=== PATIENT | female | born 1935 | race Caucasian/White ===

== ENCOUNTER 2016-11-19 12:56 | Emergency (ER) | payer OTHER ==
[~2016-11-19] VITALS: Ht 165.1 cm; Wt 84.6 kg
[2016-11-19] VITALS (11 sets, daily range): BP systolic 113–140; BP diastolic 52–74; PULSE 59–71; TEMP 36.7–37; O2SAT 95–98; Ht 165.1 cm; Wt 84.6 kg
[~2016-11-19 12:56] MED LIST: DONE10TA12 PO; FURO-85 PO; LOSA50TA6 PO; NATURAL SUPPLEMENT PO; TYLOTC500 PO; WARF4TAB43 PO; WARF4TAB44 PO
[2016-11-19] MEDS ORDERED: SODIUM CHLORIDE 0.9% 1000ML 1,000 ML IV STA (13:20)
--- NOTE | 2016-11-19 13:49 | EMERGENCY ROOM VISIT NOTE ---
History First contact with patient: 13:08 Chief Complaint: ABNORMAL LABS Stated Complaint: BLOOD TRANFUSION - SENT BY History of Present Illness The patient is a 80 year old female who presents to the Emergency Room with complaints of anemia. The patient has had persistent anemia. She has been following with Dr. Rg. She was given Procrit for approximately 3 months. Her hemoglobin was almost back to 10. Her hemoglobin began to trend downward again. She then had bone marrow biopsy by hematology. She is found to have a myeloproliferative disorder. She is now following with her family doctor. The recommended treatment is transfusion of packed red blood cells with anemia. The patient had blood work done this morning and her hemoglobin was found to be 6.6. She was sent to the emergency department for transfusion. She does take Coumadin. She has a history of CVA at age 51 and a history of pulmonary embolus. The patient's last INR was October 20 and was 2.8. The patient denies any pain. She denies any chest pain or trouble breathing. She denies any shortness of breath or dizziness. She denies any abdominal pain, nausea or vomiting. She denies any melena, hematemesis, hematochezia. She denies any dysuria, urgency, frequency or hematuria. Review of Systems A 10 system review of systems was completed with positives and pertinent negatives listed in the HPI. Past Medical/Surgical History Medical Problems: (1) CVA (cerebral vascular accident) (2) Deep venous thrombosis (3) Hysterectomy (4) Pulmonary embolism Social History Smoking Status: Never Smoker Alcohol Use: occasionally Marital Status: Housing Status: lives alone Occupation Status: unemployed Current/Historical Medications Scheduled Acetaminophen (Tylenol), 500 MG PO QAM Cholecalciferol (Vitamin D3), 1 TAB PO QAM Donepezil Hydrochloride (Aricept), 10 MG PO QAM Doxycycline (Monohydrate) (Doxycycline), 100 MG PO BID Furosemide (Lasix), 20 MG PO 3XWK Losartan Potassium (Cozaar), 25 MG PO QAM Memantine (Namenda), 10 MG PO BID Multiple Vitamins W/ Minerals (One Daily 50 Plus), 1 TAB PO QAM Sertraline (Zoloft), 50 MG PO HS Warfarin Sodium (Warfarin Sodium), 1 MG PO UD Warfarin Sodium (Warfarin Sodium), 2 MG PO QAM [Natural Supplement], 1 PACK PO HS Scheduled PRN Azelastine Hcl (Astelin Nasal [place]), 2 SPRAYS NA BID PRN for Nasal Congestion Allergies Coded Allergies: SIA Inhibitors (Unverified Allergy, Intermediate, COUGH, 11/19/16) Uncoded Allergies: N (Allergy, Unknown, 06/29/02) NO (Allergy, Unknown, 06/29/02) NO0 (Allergy, Unknown, 06/29/02) Physical Exam Vital Signs Date Time Temp Pulse Resp B/P (MAP) Pulse Ox O2 Delivery O2 Flow Rate FiO2 11/19/16 21:20 62 117/64 98 11/19/16 20:30 62 20 123/64 95 11/19/16 19:30 64 18 137/62 95 11/19/16 19:00 67 18 113/52 97 11/19/16 18:45 64 19 121/56 96 11/19/16 18:45 36.8 11/19/16 18:31 36.8 59 20 137/74 97 11/19/16 18:19 36.7 65 22 140/64 97 11/19/16 17:46 119/61 11/19/16 17:45 37.0 63 20 119/61 96 11/19/16 17:41 65 20 11/19/16 17:31 118/61 11/19/16 17:26 64 20 11/19/16 17:16 112/55 11/19/16 17:15 68 11/19/16 17:11 68 19 11/19/16 17:01 110/47 11/19/16 16:56 66 11/19/16 16:46 114/81 11/19/16 16:41 70 18 11/19/16 16:33 36.9 71 16 123/59 97 11/19/16 16:33 123/59 11/19/16 16:31 122/55 11/19/16 16:26 67 20 95 11/19/16 16:16 107/50 11/19/16 16:11 71 18 94 11/19/16 16:01 111/56 11/19/16 15:56 63 20 95 11/19/16 15:52 114/59 11/19/16 15:52 37.0 66 20 114/59 95 11/19/16 15:46 90/66 7/6/17 15:41 62 19 96 11/19/16 15:37 36.8 68 20 115/59 95 11/19/16 15:33 115/59 11/19/16 15:26 62 22 96 11/19/16 15:11 71 19 95 11/19/16 15:02 112/59 11/19/16 15:02 63 20 112/59 94 Room Air 11/19/16 14:56 65 19 96 11/19/16 14:41 68 19 95 11/19/16 14:26 69 24 11/19/16 14:11 88 26 11/19/16 13:56 66 22 11/19/16 13:41 72 25 11/19/16 13:26 79 20 11/19/16 13:15 68 11/19/16 13:03 36.7 74 20 123/58 98 Room Air Physical Exam VITALS: Vitals are noted on the nurse's note and reviewed by myself. Vital signs stable. The patient is afebrile. She is not tachycardic, tachypneic, hypoxic or hypotensive. GENERAL: This is a 80-year-old female, in no acute distress, nondiaphoretic, well-developed well-nourished. SKIN: The skin was pale without rashes, erythema, edema, or bruising. There is no tenting of the skin. Capillary reflex less than 2 seconds. HEAD: Normocephalic atraumatic. EARS: The external ears are normal in appearance. EYES: Pupils equal round and reactive to light and accommodation. Conjunctivae without injection, sclerae without icterus. Extraocular movements intact. NOSE: Patent, turbinates without inflammation or discharge. MOUTH: Mucous membranes moist. Tonsils are not enlarged. Pharynx without erythema or exudate. Uvula midline. Airway patent. Tongue does not deviate. NECK: Supple without nuchal rigidity. No lymphadenopathy. No thyromegaly. Cervical spine is nontender. No JVD. HEART: Regular rate and rhythm without murmurs gallops or rubs. LUNGS: Clear to auscultation bilaterally without wheezes, rales or rhonchi. No retractions or accessory muscle use. ABDOMEN: Positive bowel sounds x 4. Soft, nontender, without masses or organomegaly. RECTAL: There is a nontender, nonthrombosed, non-bleeding external hemorrhoid. The stool is brown and guaiac negative. MUSCULOSKELETAL: No muscle atrophy, erythema, or edema noted. Full range of motion in all extremities. Strength 5/5 throughout. NEURO: Patient was alert and oriented to person place and time. No focal neurological deficits. Medical Decision & Procedures Laboratory Results 11/19/16 13:40 Red Blood Count 1.67, Mean Corpuscular Volume 116.2, Mean Corpuscular Hemoglobin 38.3, Mean Corpuscular Hemoglobin Concent 33.0, Mean Platelet Volume 10.1, Neutrophils (%) (Auto) 57.3, Lymphocytes (%) (Auto) 31.8, Monocytes (%) ( Auto) 6.1, Eosinophils (%) (Auto) 1.7, Basophils (%) (Auto) 0.3, Neutrophils # ( Auto) 3.46, Lymphocytes # (Auto) 1.92, Monocytes # (Auto) 0.37, Eosinophils # ( Auto) 0.10, Basophils # (Auto) 0.02 11/19/16 13:40 Test 11/19/16 13:40 White Blood Count 6.04 K/uL (4.8-10.8) Red Blood Count 1.67 M/uL (4.2-5.4) Hemoglobin 6.4 g/dL (12.0-16.0) Hematocrit 19.4 % (37-47) Mean Corpuscular Volume 116.2 fL (80-100) Mean Corpuscular Hemoglobin 38.3 pg (25-34) Mean Corpuscular Hemoglobin Concent 33.0 g/dl (32-36) Platelet Count 412 K/uL (130-400) Mean Platelet Volume 10.1 fL (7.4-10.4) Neutrophils (%) (Auto) 57.3 % Lymphocytes (%) (Auto) 31.8 % Monocytes (%) (Auto) 6.1 % Eosinophils (%) (Auto) 1.7 % Basophils (%) (Auto) 0.3 % Neutrophils # (Auto) 3.46 K/uL (1.4-6.5) Lymphocytes # (Auto) 1.92 K/uL (1.2-3.4) Monocytes # (Auto) 0.37 K/uL (0.11-0.59) Eosinophils # (Auto) 0.10 K/uL (0-0.5) Basophils # (Auto) 0.02 K/uL (0-0.2) RDW Standard Deviation 76.6 fL (36.4-46.3) RDW Coefficient of Variation 18.6 % (11.5-14.5) Immature Granulocyte % (Auto) 2.8 % Immature Granulocyte # (Auto) 0.17 K/uL (0.00-0.02) Macrocytosis PRESENT Tear Drop Cells OCCASIONAL Ovalocytes 1+ Prothrombin Time 32.1 SECONDS (9.0-12.0) Prothromb Time International Ratio 2.9 (0.9-1.1) Activated Partial Thromboplast Time 31.4 SECONDS (21.0-31.0) Partial Thromboplastin Ratio 1.2 Anion Gap 4.0 mmol/L (3-11) Est Creatinine Clear Calc Drug Dose 49.0 ml/min Estimated GFR () 62.1 Estimated GFR (Non- 53.5 BUN/Creatinine Ratio 30.1 (10-20) Calcium Level 9.0 mg/dl (8.5-10.1) Total Bilirubin 0.3 mg/dl (0.2-1) Aspartate Amino Transf (AST/SGOT) 17 U/L (15-37) Alanine Aminotransferase (ALT/SGPT) 19 U/L (12-78) Alkaline Phosphatase 58 U/L (45-117) Total Protein 6.1 gm/dl (6.4-8.2) Albumin 2.9 gm/dl (3.4-5.0) Globulin 3.2 gm/dl (2.5-4.0) Albumin/Globulin Ratio 0.9 (0.9-2) Medications Administered Medications (Trade) Dose Ordered Sig/[place] Route Start Time Stop Time Status Last Admin Dose Admin Sodium Chloride 1,000 ml @ 125 mls/hr Q8H STAT IV 11/19/16 13:20 11/19/16 21:19 DC 11/19/16 13:20 125 MLS/HR ED Course The patient was seen and examined. Previous visits were reviewed. The patient does not have a fever or leukocytosis. The patient is anemic with hemoglobin 6.4 and hematocrit 19.4. She does not have any significant electrolyte abnormalities. INR is 2.9. She does take Coumadin. The patient was type and crossmatched for 2 units of packed red blood cells. These were administered in the emergency department after consent was obtained by Dr. Salazar. The patient presents to the emergency department with anemia and for blood transfusion. The patient was recently diagnosed with myeloproliferative disease. She was advised that the treatment will be transfusion of packed red blood cells if she develops significant anemia. She did not have any significant chest pain, trouble breathing, lightheadedness, dizziness. I did discuss the case with the hospitalist service, Nessa HAMMOND. She felt that the patient would be safe for discharge after transfusion of the blood. She also contacted the patient's family doctor and contacted the medical treatment unit. Due to the timing, the medical treatment unit would be closed for the patient's transfusion would be done. This was discussed with the charge nurse. The patient was monitored in the emergency department during the transfusion. She was reassessed and feeling fine. She stated she was actually feeling much better. The patient was encouraged to contact the Coumadin clinic tomorrow to discuss her Coumadin. She was also advised to have her hemoglobin rechecked in approximately 3 days. She should return with any worsening symptoms. The patient was also seen and examined by who agrees with the assessment and treatment plan. Medication Reconciliation: I attest that I have personally reviewed the patient' s current medication list. Blood pressure screening: The patient was found to have normal blood pressure on screening and does not require follow-up Medical Decision The differential diagnosis includes GI bleeding, anemia, myeloproliferative disease, dehydration, among others Impression Primary Impression: Anemia Additional Impression: Myeloproliferative disease Critical Care I have personally spent greater than 35 minutes of critical care time in the direct management of this patient. This includes bedside care, interpretation of diagnostic studies, and testing, discussion with consultants, patient, and family members, and other required patient management activities. This 30 minutes is in excess of all separately billable procedures. Departure Information Dispostion Home / Self-Care Condition GOOD Referrals Joseph Bolden, D.O. (PCP) Patient Instructions My [facility], Outpatient Transfusion Information Sheet - [facility], Transfusion Blood When Need Additional Instructions Follow up with your family doctor and have the blood work rechecked per Dr. Bolden Return with any chest pain, trouble breathing, lightheadedness, dizziness or generalized worsening symptoms Problem Qualifiers
[2016-11-19] MEDS ORDERED: ASTN (13:57)
[2016-11-19] MEDS ORDERED: DOXY-300 PO (13:57)
[2016-11-19] MEDS ORDERED: SERT50TA PO (13:57)
[2016-11-19] MEDS ORDERED: MULT50TA3 PO (14:02)
[2016-11-19] MEDS ORDERED: CHOL1000 PO (14:02)
[2016-11-19] MEDS ORDERED: NMN10 PO (14:02)
--- NOTE | 2016-11-19 14:09 | EMERGENCY ROOM VISIT NOTE ---
ED Visit Note First contact with patient: 13:08 I have seen and examined this patient with Yani Camacho and generally agree with the treatment plan as discussed. Problem List Medical Problems: (1) Deep venous thrombosis Status: Resolved (2) Hysterectomy Status: Resolved (3) Pulmonary embolism Status: Resolved Current/Historical Medications Scheduled Acetaminophen (Tylenol), 500 MG PO QAM Cholecalciferol (Vitamin D3), 1 TAB PO DAILY Donepezil Hydrochloride (Aricept), 10 MG PO QAM Doxycycline (Monohydrate) (Doxycycline), 100 MG PO BID Furosemide (Lasix), 20 MG PO 3XWK Losartan Potassium (Cozaar), 25 MG PO QAM Memantine (Namenda), 10 MG PO BID Multiple Vitamins W/ Minerals (One Daily 50 Plus), 1 TAB PO QAM Sertraline (Zoloft), 50 MG PO HS Warfarin Sodium (Warfarin Sodium), 1 MG PO UD Warfarin Sodium (Warfarin Sodium), 2 MG PO QAM [Natural Supplement], 1 PACK PO HS Scheduled PRN Azelastine Hcl (Astelin Nasal [place]), 1-2 SPRAYS NA BID PRN for Nasal Congestion Allergies Coded Allergies: SIA Inhibitors (Unverified Allergy, Intermediate, COUGH, 11/19/16) Uncoded Allergies: N (Allergy, Unknown, 06/29/02) NO (Allergy, Unknown, 06/29/02) NO0 (Allergy, Unknown, 06/29/02) Vital Signs Date Time Temp Pulse Resp B/P (MAP) Pulse Ox O2 Delivery O2 Flow Rate FiO2 11/19/16 13:15 68 11/19/16 13:03 36.7 74 20 123/58 98 Room Air Laboratory Results Test 11/19/16 13:40 Medications Administered Medications (Trade) Dose Ordered Sig/[place] Route Start Time Stop Time Status Last Admin Dose Admin Sodium Chloride 1,000 ml @ 125 mls/hr Q8H STAT IV 11/19/16 13:20 11/19/16 21:19 11/19/16 13:20 125 MLS/HR Departure Information Referrals Joseph Bolden D.O. (PCP) Patient Instructions My [facility]
[2016-11-19 14:10] LABS: INR 2.9 (0.9-1.1); PARTIAL THROMBOPLASTIN RATIO 1.2; PROTHROMBIN TIME (PATIENT) 32.1 SECONDS (9.0-12.0)
[2016-11-19 14:12] LABS: HEMATOCRIT 19.4 % (37-47); MEAN CELL VOLUME 116.2 fL (80-100); MEAN CORPUSCULAR HEMOGLOBIN 38.3 pg (25-34); MEAN PLATELET VOLUME 10.1 fL (7.4-10.4); PLATELET COUNT 412 K/uL (130-400); RED BLOOD COUNT 1.67 M/uL (4.2-5.4); WHITE BLOOD COUNT 6.04 K/uL (4.8-10.8)
[2016-11-19 14:24] LABS: BUN/CREATININE RATIO 30.1 (10-20); POTASSIUM 4.2 mmol/L (3.5-5.1)
[2016-11-19 14:27] LABS: ALB/GLOB RATIO 0.9 (0.9-2); BASO % 0.3 %; BASO ABS # 0.02 K/uL (0-0.2); COMPLETE YES; EOS % 1.7 %; IG% 2.8 %; LYMPH % 31.8 %; LYMPH ABS # 1.92 K/uL (1.2-3.4); MONO % 6.1 %; NEUT % 57.3 %; OVALOCYTES 1+; TEAR DROP CELLS OCCASIONAL
== END 2016-11-19 21:10 | disposition home or self-care (01) ==
LOC: C.EDB 12:57 → C.EDC 21:10
DX: D64.9 Anemia, unspecified (principal); C94.6 Myelodysplastic disease, not elsewhere classified; Z86.73 Personal history of transient ischemic attack (TIA), and cerebral infarction without residual deficits; Z86.711 Personal history of pulmonary embolism; Z86.718 Personal history of other venous thrombosis and embolism; Z90.710 Acquired absence of both cervix and uterus; Z79.01 Long term (current) use of anticoagulants

== ENCOUNTER → 2017-07-13 | Outpatient (CLI) | payer OTHER ==
[~2017-07-13] MED LIST changes: +ASTN; +CHOL1000 PO; +DOXY-300 PO; -LOSA50TA6 PO; +MULT50TA3 PO; -NATURAL SUPPLEMENT PO; +NMN10 PO; +SERT50TA PO
[2017-07-13 12:39] LABS: HEMATOCRIT 18.6 % (37-47); HEMOGLOBIN 6.2 g/dL (12.0-16.0); MEAN CELL VOLUME 86.1 fL (80-100); MEAN CORPUSCULAR HEMOGLOBIN 28.7 pg (25-34); MEAN CORPUSCULAR HGB CONC 33.3 g/dl (32-36); MEAN PLATELET VOLUME 10.9 fL (7.4-10.4); PLATELET COUNT 222 K/uL (130-400); RED CELL DISTRIBUTION WIDTH CV 16.8 % (11.5-14.5); WHITE BLOOD COUNT 5.64 K/uL (4.8-10.8)
[2017-07-13 12:51] LABS: EOS ABS # 0.11 K/uL (0-0.5); IG# 0.02 K/uL (0.00-0.02); LYMPH % 30.3 %; LYMPH ABS # 1.71 K/uL (1.2-3.4); MONO % 8.9 %; NEUT % 58.4 %
== END | disposition home or self-care (01) ==
LOC: C.LABWYN 12:16
PROVIDERS: ATTEND Internal Medicine Hematology & Oncology
DX: D46.9 Myelodysplastic syndrome, unspecified (principal)

== ENCOUNTER → 2017-07-20 | Outpatient (CLI) | payer OTHER ==
[2017-07-20 12:36] LABS: BASO % 0.2 %; BASO ABS # 0.01 K/uL (0-0.2); EOS % 1.8 %; EOS ABS # 0.12 K/uL (0-0.5); HEMATOCRIT 21.9 % (37-47); HEMOGLOBIN 7.3 g/dL (12.0-16.0); IG# 0.01 K/uL (0.00-0.02); LYMPH % 24.2 %; LYMPH ABS # 1.58 K/uL (1.2-3.4); MEAN CORPUSCULAR HEMOGLOBIN 29.3 pg (25-34); MEAN CORPUSCULAR HGB CONC 33.3 g/dl (32-36); MEAN PLATELET VOLUME 11.5 fL (7.4-10.4); MONO % 10.6 %; MONO ABS # 0.69 K/uL (0.11-0.59); NEUT ABS # 4.13 K/uL (1.4-6.5); PLATELET COUNT 179 K/uL (130-400); RED CELL DISTRIBUTION WIDTH CV 17.2 % (11.5-14.5); RED CELL DISTRIBUTION WIDTH SD 55.9 fL (36.4-46.3); WHITE BLOOD COUNT 6.54 K/uL (4.8-10.8)
== END | disposition home or self-care (01) ==
LOC: C.LABWYN 09:19
PROVIDERS: ATTEND Internal Medicine Hematology & Oncology
DX: D46.9 Myelodysplastic syndrome, unspecified (principal)

== ENCOUNTER → 2017-07-27 | Outpatient (CLI) | payer OTHER ==
[2017-07-27 12:46] LABS: BASO % 0.2 %; BASO ABS # 0.01 K/uL (0-0.2); EOS % 2.9 %; EOS ABS # 0.17 K/uL (0-0.5); HEMOGLOBIN 8.1 g/dL (12.0-16.0); IG# 0.02 K/uL (0.00-0.02); LYMPH % 23.3 %; LYMPH ABS # 1.39 K/uL (1.2-3.4); MEAN CELL VOLUME 88.7 fL (80-100); MEAN CORPUSCULAR HEMOGLOBIN 28.7 pg (25-34); MEAN CORPUSCULAR HGB CONC 32.4 g/dl (32-36); MEAN PLATELET VOLUME 11.3 fL (7.4-10.4); MONO ABS # 0.42 K/uL (0.11-0.59); NEUT % 66.3 %; NEUT ABS # 3.95 K/uL (1.4-6.5); PLATELET COUNT 196 K/uL (130-400); RED CELL DISTRIBUTION WIDTH CV 16.8 % (11.5-14.5); RED CELL DISTRIBUTION WIDTH SD 54.8 fL (36.4-46.3); WHITE BLOOD COUNT 5.96 K/uL (4.8-10.8)
== END | disposition home or self-care (01) ==
LOC: C.LABWYN 12:31
PROVIDERS: ATTEND Internal Medicine Hematology & Oncology
DX: D46.9 Myelodysplastic syndrome, unspecified (principal)

== ENCOUNTER → 2017-08-03 | Outpatient (CLI) | payer OTHER ==
[2017-08-03 12:55] LABS: BASO % 0.1 %; BASO ABS # 0.01 K/uL (0-0.2); EOS % 1.9 %; EOS ABS # 0.14 K/uL (0-0.5); HEMATOCRIT 21.9 % (37-47); IG# 0.01 K/uL (0.00-0.02); LYMPH % 23.2 %; LYMPH ABS # 1.75 K/uL (1.2-3.4); MEAN CELL VOLUME 88.7 fL (80-100); MEAN CORPUSCULAR HEMOGLOBIN 28.3 pg (25-34); MEAN PLATELET VOLUME 11.2 fL (7.4-10.4); MONO % 8.9 %; MONO ABS # 0.67 K/uL (0.11-0.59); NEUT % 65.8 %; NEUT ABS # 4.95 K/uL (1.4-6.5); PLATELET COUNT 215 K/uL (130-400); RED CELL DISTRIBUTION WIDTH SD 55.4 fL (36.4-46.3); WHITE BLOOD COUNT 7.53 K/uL (4.8-10.8)
== END | disposition home or self-care (01) ==
LOC: C.LABWYN 12:02
PROVIDERS: ATTEND Internal Medicine Hematology & Oncology
DX: D46.9 Myelodysplastic syndrome, unspecified (principal); R35.0 Frequency of micturition

== ENCOUNTER → 2017-08-10 | Outpatient (CLI) | payer OTHER ==
[2017-08-10 12:28] LABS: BASO % 0.2 %; BASO ABS # 0.01 K/uL (0-0.2); EOS % 2.6 %; EOS ABS # 0.15 K/uL (0-0.5); HEMATOCRIT 25.4 % (37-47); HEMOGLOBIN 8.1 g/dL (12.0-16.0); IG# 0.03 K/uL (0.00-0.02); LYMPH % 31.1 %; LYMPH ABS # 1.81 K/uL (1.2-3.4); MEAN CELL VOLUME 87.9 fL (80-100); MEAN CORPUSCULAR HGB CONC 31.9 g/dl (32-36); MEAN PLATELET VOLUME 11.1 fL (7.4-10.4); MONO % 9.8 %; MONO ABS # 0.57 K/uL (0.11-0.59); NEUT % 55.8 %; NEUT ABS # 3.25 K/uL (1.4-6.5); PLATELET COUNT 224 K/uL (130-400); RED CELL DISTRIBUTION WIDTH CV 16.4 % (11.5-14.5); RED CELL DISTRIBUTION WIDTH SD 53.1 fL (36.4-46.3); WHITE BLOOD COUNT 5.82 K/uL (4.8-10.8)
== END | disposition home or self-care (01) ==
LOC: C.LABWYN 15:41
PROVIDERS: ATTEND Internal Medicine Hematology & Oncology
DX: D46.9 Myelodysplastic syndrome, unspecified (principal)

== ENCOUNTER → 2017-08-24 | Outpatient (CLI) | payer OTHER ==
[2017-08-24 13:13] LABS: BASO % 0.2 %; BASO ABS # 0.01 K/uL (0-0.2); EOS % 2.8 %; EOS ABS # 0.17 K/uL (0-0.5); HEMATOCRIT 23.4 % (37-47); HEMOGLOBIN 7.5 g/dL (12.0-16.0); IG# 0.01 K/uL (0.00-0.02); LYMPH ABS # 1.81 K/uL (1.2-3.4); MEAN CELL VOLUME 87.6 fL (80-100); MEAN CORPUSCULAR HEMOGLOBIN 28.1 pg (25-34); MEAN CORPUSCULAR HGB CONC 32.1 g/dl (32-36); MEAN PLATELET VOLUME 11.7 fL (7.4-10.4); MONO % 9.5 %; MONO ABS # 0.57 K/uL (0.11-0.59); NEUT % 57.3 %; NEUT ABS # 3.46 K/uL (1.4-6.5); PLATELET COUNT 256 K/uL (130-400); RED CELL DISTRIBUTION WIDTH CV 16.2 % (11.5-14.5); RED CELL DISTRIBUTION WIDTH SD 52.4 fL (36.4-46.3); WHITE BLOOD COUNT 6.03 K/uL (4.8-10.8)
== END | disposition home or self-care (01) ==
LOC: C.LABWYN 18:03
PROVIDERS: ATTEND Internal Medicine Hematology & Oncology
DX: D46.9 Myelodysplastic syndrome, unspecified (principal)

== ENCOUNTER → 2017-08-31 | Outpatient (CLI) | payer OTHER ==
[2017-08-31 13:03] LABS: BASO % 0.2 %; BASO ABS # 0.01 K/uL (0-0.2); EOS % 3.5 %; EOS ABS # 0.14 K/uL (0-0.5); HEMATOCRIT 24.8 % (37-47); HEMOGLOBIN 8.1 g/dL (12.0-16.0); IG# 0.01 K/uL (0.00-0.02); LYMPH % 32.3 %; LYMPH ABS # 1.31 K/uL (1.2-3.4); MEAN CELL VOLUME 85.8 fL (80-100); MEAN CORPUSCULAR HGB CONC 32.7 g/dl (32-36); MEAN PLATELET VOLUME 11.6 fL (7.4-10.4); MONO % 13.1 %; MONO ABS # 0.53 K/uL (0.11-0.59); NEUT % 50.7 %; NEUT ABS # 2.05 K/uL (1.4-6.5); PLATELET COUNT 173 K/uL (130-400); RED CELL DISTRIBUTION WIDTH CV 16.7 % (11.5-14.5); RED CELL DISTRIBUTION WIDTH SD 52.6 fL (36.4-46.3); WHITE BLOOD COUNT 4.05 K/uL (4.8-10.8)
[2017-08-31 13:13] LABS: INR 1.4 (0.9-1.1)
== END | disposition home or self-care (01) ==
LOC: C.LABWYN 11:39
PROVIDERS: ATTEND Internal Medicine Hematology & Oncology
DX: D46.9 Myelodysplastic syndrome, unspecified (principal); Z79.01 Long term (current) use of anticoagulants; Z51.81 Encounter for therapeutic drug level monitoring

== ENCOUNTER → 2017-09-07 | Outpatient (CLI) | payer OTHER ==
[2017-09-07 12:34] LABS: BASO % 0.2 %; BASO ABS # 0.01 K/uL (0-0.2); EOS % 3.8 %; EOS ABS # 0.24 K/uL (0-0.5); HEMATOCRIT 23.5 % (37-47); HEMOGLOBIN 7.5 g/dL (12.0-16.0); IG# 0.03 K/uL (0.00-0.02); LYMPH % 40.3 %; LYMPH ABS # 2.56 K/uL (1.2-3.4); MEAN CELL VOLUME 85.1 fL (80-100); MEAN CORPUSCULAR HEMOGLOBIN 27.2 pg (25-34); MEAN CORPUSCULAR HGB CONC 31.9 g/dl (32-36); MEAN PLATELET VOLUME 11.1 fL (7.4-10.4); MONO % 7.4 %; MONO ABS # 0.47 K/uL (0.11-0.59); NEUT % 47.8 %; NEUT ABS # 3.04 K/uL (1.4-6.5); PLATELET COUNT 236 K/uL (130-400); RED CELL DISTRIBUTION WIDTH CV 16.6 % (11.5-14.5); RED CELL DISTRIBUTION WIDTH SD 51.7 fL (36.4-46.3); WHITE BLOOD COUNT 6.35 K/uL (4.8-10.8)
[2017-09-07 12:40] LABS: INR 1.8 (0.9-1.1)
--- NOTE | 2017-09-13 16:14 | CODING QUERY NO DIAGNOSIS ---
TREATMENT RENDERED WITHOUT A DIAGNOSIS To promote full compliance with coding requirements relating to patient care, physician participation is requested in all cases of medical reception specialist uncertainty. Please assist us with providing a diagnosis/symptom for the test(s) below: A diagnosis/symptom was not documented on your Order. A valid diagnosis/symptom is required to bill all insurances. Please remember that we are unable to code a diagnosis of rule out, probable, possible, questionable, or suspected. Tests that require a diagnosis: DOS: 09/07/17 * Prothrombin Time DIAGNOSIS: Provider Signature: Date: Thank you Cori Choudhary [place] Information [facility] Once completed, please kindly fax back to [phone] For questions please call [phone]
== END | disposition home or self-care (01) ==
LOC: C.LABWYN 12:41
PROVIDERS: ATTEND Internal Medicine Hematology & Oncology
DX: D46.9 Myelodysplastic syndrome, unspecified (principal); I26.99 Other pulmonary embolism without acute cor pulmonale

== ENCOUNTER → 2017-09-14 | Outpatient (CLI) | payer OTHER ==
[2017-09-14 13:07] LABS: HEMATOCRIT 19.3 % (37-47); HEMOGLOBIN 6.2 g/dL (12.0-16.0); MEAN CELL VOLUME 84.3 fL (80-100); MEAN CORPUSCULAR HEMOGLOBIN 27.1 pg (25-34); MEAN CORPUSCULAR HGB CONC 32.1 g/dl (32-36); PLATELET COUNT 221 K/uL (130-400); RED CELL DISTRIBUTION WIDTH CV 16.7 % (11.5-14.5); RED CELL DISTRIBUTION WIDTH SD 51.6 fL (36.4-46.3); WHITE BLOOD COUNT 5.04 K/uL (4.8-10.8)
[2017-09-14 13:08] LABS: INR 1.9 (0.9-1.1)
[2017-09-14 13:22] LABS: BASO % 0.2 %; BASO ABS # 0.01 K/uL (0-0.2); EOS % 2.6 %; EOS ABS # 0.13 K/uL (0-0.5); IG# 0.02 K/uL (0.00-0.02); LYMPH % 33.3 %; LYMPH ABS # 1.68 K/uL (1.2-3.4); MONO % 8.7 %; MONO ABS # 0.44 K/uL (0.11-0.59); NEUT % 54.8 %; NEUT ABS # 2.76 K/uL (1.4-6.5)
== END | disposition home or self-care (01) ==
LOC: C.LABWYN 17:28
PROVIDERS: ATTEND Internal Medicine Hematology & Oncology
DX: D46.9 Myelodysplastic syndrome, unspecified (principal)

== ENCOUNTER → 2017-09-21 | Outpatient (CLI) | payer OTHER ==
[2017-09-21 13:01] LABS: BASO % 0.3 %; BASO ABS # 0.01 K/uL (0-0.2); EOS % 3.6 %; EOS ABS # 0.14 K/uL (0-0.5); HEMATOCRIT 21.6 % (37-47); IG# 0.01 K/uL (0.00-0.02); LYMPH % 37.6 %; LYMPH ABS # 1.48 K/uL (1.2-3.4); MEAN CELL VOLUME 84.7 fL (80-100); MEAN CORPUSCULAR HEMOGLOBIN 27.5 pg (25-34); MEAN CORPUSCULAR HGB CONC 32.4 g/dl (32-36); MEAN PLATELET VOLUME 11.5 fL (7.4-10.4); MONO % 8.1 %; MONO ABS # 0.32 K/uL (0.11-0.59); NEUT % 50.1 %; NEUT ABS # 1.98 K/uL (1.4-6.5); PLATELET COUNT 187 K/uL (130-400); RED CELL DISTRIBUTION WIDTH CV 16.5 % (11.5-14.5); RED CELL DISTRIBUTION WIDTH SD 51.3 fL (36.4-46.3); WHITE BLOOD COUNT 3.94 K/uL (4.8-10.8)
[2017-09-21 13:16] LABS: INR 1.9 (0.9-1.1)
== END | disposition home or self-care (01) ==
LOC: C.LABWYN 10:09
PROVIDERS: ATTEND Internal Medicine Hematology & Oncology
DX: D46.9 Myelodysplastic syndrome, unspecified (principal); Z79.01 Long term (current) use of anticoagulants

== ENCOUNTER → 2017-09-28 | Outpatient (CLI) | payer OTHER ==
[2017-09-28 14:03] LABS: BASO % 0.2 %; BASO ABS # 0.01 K/uL (0-0.2); EOS % 2.5 %; EOS ABS # 0.13 K/uL (0-0.5); HEMATOCRIT 23.2 % (37-47); HEMOGLOBIN 7.7 g/dL (12.0-16.0); IG# 0.02 K/uL (0.00-0.02); LYMPH % 29.6 %; LYMPH ABS # 1.51 K/uL (1.2-3.4); MEAN CELL VOLUME 86.9 fL (80-100); MEAN CORPUSCULAR HEMOGLOBIN 28.8 pg (25-34); MEAN CORPUSCULAR HGB CONC 33.2 g/dl (32-36); MONO % 9.6 %; MONO ABS # 0.49 K/uL (0.11-0.59); NEUT % 57.7 %; NEUT ABS # 2.94 K/uL (1.4-6.5); PLATELET COUNT 172 K/uL (130-400); RED CELL DISTRIBUTION WIDTH CV 16.8 % (11.5-14.5); RED CELL DISTRIBUTION WIDTH SD 53.9 fL (36.4-46.3)
[2017-09-28 14:07] LABS: INR 2.1 (0.9-1.1)
== END | disposition home or self-care (01) ==
LOC: C.LABWYN 16:50
PROVIDERS: ATTEND Internal Medicine Hematology & Oncology
DX: D46.9 Myelodysplastic syndrome, unspecified (principal)

== ENCOUNTER → 2017-10-05 | Outpatient (CLI) | payer OTHER ==
[2017-10-05 13:00] LABS: HEMOGLOBIN 6.7 g/dL (12.0-16.0); MEAN CORPUSCULAR HEMOGLOBIN 29.1 pg (25-34); MEAN CORPUSCULAR HGB CONC 33.5 g/dl (32-36); MEAN PLATELET VOLUME 11.8 fL (7.4-10.4); PLATELET COUNT 163 K/uL (130-400); RED CELL DISTRIBUTION WIDTH CV 16.9 % (11.5-14.5); RED CELL DISTRIBUTION WIDTH SD 54.4 fL (36.4-46.3); WHITE BLOOD COUNT 3.72 K/uL (4.8-10.8)
[2017-10-05 13:20] LABS: BASO % 0.3 %; BASO ABS # 0.01 K/uL (0-0.2); EOS % 3.2 %; EOS ABS # 0.12 K/uL (0-0.5); IG# 0.01 K/uL (0.00-0.02); LYMPH % 36.8 %; LYMPH ABS # 1.37 K/uL (1.2-3.4); MONO % 11.3 %; MONO ABS # 0.42 K/uL (0.11-0.59); NEUT % 48.1 %; NEUT ABS # 1.79 K/uL (1.4-6.5)
== END | disposition home or self-care (01) ==
LOC: C.LABWYN 18:04
PROVIDERS: ATTEND Internal Medicine Hematology & Oncology
DX: D46.9 Myelodysplastic syndrome, unspecified (principal)

== ENCOUNTER → 2017-11-23 | Outpatient (CLI) | payer OTHER ==
[2017-11-23 13:09] LABS: HEMATOCRIT 19.4 % (37-47); HEMOGLOBIN 6.2 g/dL (12.0-16.0); MEAN CELL VOLUME 86.6 fL (80-100); MEAN CORPUSCULAR HEMOGLOBIN 27.7 pg (25-34); MEAN PLATELET VOLUME 11.1 fL (7.4-10.4); PLATELET COUNT 162 K/uL (130-400); RED CELL DISTRIBUTION WIDTH SD 52.1 fL (36.4-46.3); WHITE BLOOD COUNT 4.06 K/uL (4.8-10.8)
[2017-11-23 13:12] LABS: BASO % 0.2 %; BASO ABS # 0.01 K/uL (0-0.2); EOS % 3.7 %; EOS ABS # 0.15 K/uL (0-0.5); IG# 0.01 K/uL (0.00-0.02); LYMPH % 36.7 %; LYMPH ABS # 1.49 K/uL (1.2-3.4); MONO % 8.9 %; MONO ABS # 0.36 K/uL (0.11-0.59); NEUT % 50.3 %; NEUT ABS # 2.04 K/uL (1.4-6.5)
== END | disposition home or self-care (01) ==
LOC: C.LABWYN 05:40
PROVIDERS: ATTEND Internal Medicine Hematology & Oncology
DX: D46.9 Myelodysplastic syndrome, unspecified (principal)

== ENCOUNTER → 2017-12-02 | Outpatient (CLI) | payer OTHER ==
[2017-12-02 13:30] LABS: EOS % 3.3 %; EOS ABS # 0.15 K/uL (0-0.5); HEMATOCRIT 23.1 % (37-47); HEMOGLOBIN 7.3 g/dL (12.0-16.0); IG# 0.02 K/uL (0.00-0.02); LYMPH % 30.5 %; LYMPH ABS # 1.37 K/uL (1.2-3.4); MEAN CELL VOLUME 86.2 fL (80-100); MEAN CORPUSCULAR HEMOGLOBIN 27.2 pg (25-34); MEAN CORPUSCULAR HGB CONC 31.6 g/dl (32-36); MONO % 10.5 %; MONO ABS # 0.47 K/uL (0.11-0.59); NEUT % 55.3 %; NEUT ABS # 2.48 K/uL (1.4-6.5); PLATELET COUNT 172 K/uL (130-400); RED CELL DISTRIBUTION WIDTH CV 16.1 % (11.5-14.5); RED CELL DISTRIBUTION WIDTH SD 50.7 fL (36.4-46.3); WHITE BLOOD COUNT 4.49 K/uL (4.8-10.8)
== END | disposition home or self-care (01) ==
LOC: C.LABWYN 11:37
PROVIDERS: ATTEND Internal Medicine Hematology & Oncology
DX: D46.9 Myelodysplastic syndrome, unspecified (principal)

== ENCOUNTER → 2017-12-07 | Outpatient (CLI) | payer OTHER ==
[2017-12-07 13:33] LABS: HEMATOCRIT 21.4 % (37-47); HEMOGLOBIN 6.8 g/dL (12.0-16.0); MEAN CELL VOLUME 84.9 fL (80-100); MEAN CORPUSCULAR HGB CONC 31.8 g/dl (32-36); MEAN PLATELET VOLUME 11.8 fL (7.4-10.4); PLATELET COUNT 190 K/uL (130-400); RED CELL DISTRIBUTION WIDTH CV 16.1 % (11.5-14.5); RED CELL DISTRIBUTION WIDTH SD 50.4 fL (36.4-46.3)
[2017-12-07 13:59] LABS: BASO % 0.2 %; BASO ABS # 0.01 K/uL (0-0.2); EOS % 2.3 %; EOS ABS # 0.12 K/uL (0-0.5); IG# 0.01 K/uL (0.00-0.02); LYMPH % 37.9 %; LYMPH ABS # 1.97 K/uL (1.2-3.4); MONO % 8.5 %; MONO ABS # 0.44 K/uL (0.11-0.59); NEUT % 50.9 %; NEUT ABS # 2.65 K/uL (1.4-6.5)
[2017-12-07 14:22] LABS: ALKALINE PHOSPHATASE 100 U/L (45-117); ALT/SGPT 26 U/L (12-78); AST/SGOT 21 U/L (15-37); BLOOD UREA NITROGEN 29 mg/dl (7-18); CALCIUM 8.4 mg/dl (8.5-10.1); CARBON DIOXIDE 26 mmol/L (21-32); CREATININE 0.89 mg/dl (0.60-1.20); GLUCOSE 90 mg/dl (70-99); POTASSIUM 4.2 mmol/L (3.5-5.1); SODIUM 143 mmol/L (136-145); TOTAL PROTEIN 5.8 gm/dl (6.4-8.2)
== END | disposition home or self-care (01) ==
LOC: C.LABWYN 16:30
PROVIDERS: ATTEND Internal Medicine Hematology & Oncology
DX: N18.3 Chronic kidney disease, stage 3 (moderate) (principal)

== ENCOUNTER → 2017-12-14 | Outpatient (CLI) | payer OTHER ==
[2017-12-14 13:04] LABS: BASO % 0.3 %; BASO ABS # 0.01 K/uL (0-0.2); EOS % 3.1 %; EOS ABS # 0.11 K/uL (0-0.5); HEMATOCRIT 23.5 % (37-47); HEMOGLOBIN 7.4 g/dL (12.0-16.0); IG# 0.01 K/uL (0.00-0.02); LYMPH ABS # 1.31 K/uL (1.2-3.4); MEAN CELL VOLUME 85.5 fL (80-100); MEAN CORPUSCULAR HEMOGLOBIN 26.9 pg (25-34); MEAN CORPUSCULAR HGB CONC 31.5 g/dl (32-36); MEAN PLATELET VOLUME 11.7 fL (7.4-10.4); MONO % 8.2 %; MONO ABS # 0.29 K/uL (0.11-0.59); NEUT % 51.1 %; NEUT ABS # 1.81 K/uL (1.4-6.5); PLATELET COUNT 171 K/uL (130-400); RED CELL DISTRIBUTION WIDTH CV 16.2 % (11.5-14.5); RED CELL DISTRIBUTION WIDTH SD 51.7 fL (36.4-46.3); WHITE BLOOD COUNT 3.54 K/uL (4.8-10.8)
== END | disposition home or self-care (01) ==
LOC: C.LABWYN 15:15
PROVIDERS: ATTEND Internal Medicine Hematology & Oncology
DX: D46.9 Myelodysplastic syndrome, unspecified (principal)

== ENCOUNTER → 2017-12-21 | Outpatient (CLI) | payer OTHER ==
[2017-12-21 12:53] LABS: BASO % 0.2 %; BASO ABS # 0.01 K/uL (0-0.2); EOS % 2.8 %; EOS ABS # 0.13 K/uL (0-0.5); HEMATOCRIT 22.1 % (37-47); HEMOGLOBIN 7.1 g/dL (12.0-16.0); IG# 0.01 K/uL (0.00-0.02); LYMPH % 35.2 %; LYMPH ABS # 1.62 K/uL (1.2-3.4); MEAN CELL VOLUME 85.3 fL (80-100); MEAN CORPUSCULAR HEMOGLOBIN 27.4 pg (25-34); MEAN CORPUSCULAR HGB CONC 32.1 g/dl (32-36); MEAN PLATELET VOLUME 11.9 fL (7.4-10.4); MONO % 8.9 %; MONO ABS # 0.41 K/uL (0.11-0.59); NEUT % 52.7 %; NEUT ABS # 2.42 K/uL (1.4-6.5); PLATELET COUNT 184 K/uL (130-400); RED CELL DISTRIBUTION WIDTH CV 16.1 % (11.5-14.5); RED CELL DISTRIBUTION WIDTH SD 50.8 fL (36.4-46.3)
[2017-12-21 13:01] LABS: INR 1.6 (0.9-1.1)
== END | disposition home or self-care (01) ==
LOC: C.LABWYN 16:21
PROVIDERS: ATTEND Internal Medicine Hematology & Oncology
DX: D46.9 Myelodysplastic syndrome, unspecified (principal)

== ENCOUNTER → 2017-12-28 | Outpatient (CLI) | payer OTHER ==
[2017-12-28 13:20] LABS: HEMATOCRIT 17.2 % (37-47); HEMOGLOBIN 5.7 g/dL (12.0-16.0); MEAN CELL VOLUME 83.1 fL (80-100); MEAN CORPUSCULAR HEMOGLOBIN 27.5 pg (25-34); MEAN CORPUSCULAR HGB CONC 33.1 g/dl (32-36); MEAN PLATELET VOLUME 11.6 fL (7.4-10.4); PLATELET COUNT 172 K/uL (130-400); RED CELL DISTRIBUTION WIDTH CV 16.2 % (11.5-14.5); RED CELL DISTRIBUTION WIDTH SD 49.8 fL (36.4-46.3); WHITE BLOOD COUNT 5.94 K/uL (4.8-10.8)
[2017-12-28 13:29] LABS: BASO % 0.2 %; BASO ABS # 0.01 K/uL (0-0.2); EOS % 0.2 %; EOS ABS # 0.01 K/uL (0-0.5); IG# 0.02 K/uL (0.00-0.02); LYMPH % 18.5 %; MONO % 6.7 %; NEUT % 74.1 %
== END | disposition home or self-care (01) ==
LOC: C.LABWYN 16:25
PROVIDERS: ATTEND Internal Medicine Hematology & Oncology
DX: D46.9 Myelodysplastic syndrome, unspecified (principal)

== ENCOUNTER → 2017-12-29 | Outpatient (CLI) | payer OTHER ==
[2017-12-29 09:59] LABS: HEMATOCRIT 17.7 % (37-47); HEMOGLOBIN 5.6 g/dL (12.0-16.0); MEAN CELL VOLUME 84.3 fL (80-100); MEAN CORPUSCULAR HEMOGLOBIN 26.7 pg (25-34); MEAN CORPUSCULAR HGB CONC 31.6 g/dl (32-36); MEAN PLATELET VOLUME 11.9 fL (7.4-10.4); PLATELET COUNT 195 K/uL (130-400); RED CELL DISTRIBUTION WIDTH CV 16.4 % (11.5-14.5); RED CELL DISTRIBUTION WIDTH SD 50.9 fL (36.4-46.3); WHITE BLOOD COUNT 6.53 K/uL (4.8-10.8)
[2017-12-29 10:00] LABS: EOS % 1.5 %; IG# 0.02 K/uL (0.00-0.02); LYMPH % 34.3 %; LYMPH ABS # 2.24 K/uL (1.2-3.4); MONO % 10.1 %; MONO ABS # 0.66 K/uL (0.11-0.59); NEUT % 53.8 %; NEUT ABS # 3.51 K/uL (1.4-6.5)
--- NOTE | 2018-01-06 13:29 | CODING QUERY NO DIAGNOSIS ---
Valid Physician Order Needed A valid physician order must be submitted in order to properly bill for the service(s) provided, including date of service(s), valid diagnosis, and physician signature. If these tests are done on a recurring basis the original physician order must be submitted in order to code and bill for the service(s) provided. Please fax us the original, signed physician order so that we may expedite billing to [phone] DOS 12/29/17 * STACY Thank you Cori Choudhary [facility] Information Management
== END | disposition home or self-care (01) ==
LOC: C.LABWYN 08:38
PROVIDERS: ATTEND Internal Medicine
DX: D46.9 Myelodysplastic syndrome, unspecified (principal); R41.82 Altered mental status, unspecified

== ENCOUNTER → 2018-01-04 | Outpatient (CLI) | payer OTHER ==
[2018-01-04 13:01] LABS: HEMATOCRIT 19.9 % (37-47); HEMOGLOBIN 6.2 g/dL (12.0-16.0); MEAN CELL VOLUME 86.5 fL (80-100); MEAN CORPUSCULAR HGB CONC 31.2 g/dl (32-36); MEAN PLATELET VOLUME 11.7 fL (7.4-10.4); PLATELET COUNT 173 K/uL (130-400); RED CELL DISTRIBUTION WIDTH CV 16.9 % (11.5-14.5); RED CELL DISTRIBUTION WIDTH SD 53.7 fL (36.4-46.3); WHITE BLOOD COUNT 5.29 K/uL (4.8-10.8)
[2018-01-04 13:04] LABS: INR 1.9 (0.9-1.1)
[2018-01-04 13:24] LABS: EOS % 2.5 %; EOS ABS # 0.13 K/uL (0-0.5); IG# 0.01 K/uL (0.00-0.02); LYMPH % 32.7 %; LYMPH ABS # 1.73 K/uL (1.2-3.4); MONO % 9.3 %; MONO ABS # 0.49 K/uL (0.11-0.59); NEUT % 55.3 %; NEUT ABS # 2.93 K/uL (1.4-6.5)
== END | disposition home or self-care (01) ==
LOC: C.LABWYN 16:10
PROVIDERS: ATTEND Internal Medicine Hematology & Oncology
DX: D46.9 Myelodysplastic syndrome, unspecified (principal)